=== PATIENT | male | born 1950 | race Hispanic/Latino ===

== ENCOUNTER 2025-02-10 09:23 | Inpatient (IN) | payer MEDICARE ==
[2025-02-10] VITALS (7 sets, daily range): BP systolic 129–141; BP diastolic 73–79; PULSE 62–83; RESP 18–19; TEMP 97.6–98.5; O2SAT 98–100
[~2025-02-10] VITALS: Ht 175.3 cm; Wt 83.9 kg
[2025-02-10] MEDS: HYDROCODONE/APAP 5MG-325MG TAB PO ONE (10:18)
[2025-02-10] MEDS: TETANUS/DIPHTHERIA TOX ADULT 0.5 ML SYR IM ONE (10:20)
[2025-02-10] MEDS ORDERED: SODIUM CHLORIDE FLUSH 10 ML SYR INJ PRN (11:45)
[2025-02-10] MEDS ORDERED: ONDANSETRON HCL INJ 2MG/ML 2ML 2 MG/ML VIAL IV PRN (11:45)
[2025-02-10 12:05] LABS: EST GLOMERULAR FILTRATION RATE 81.0 ML/MIN (>=60)
[2025-02-10 12:08] LABS: INR 1.16
[2025-02-10 12:17] LABS: BASOPHILS % 0.2 % (0.0-1.0); EOSINOPHILS % 0.7 % (0.0-6.0); LYMPHOCYTES % 19.8 % (18.0-39.1); MONOCYTES % 11.7 % (4.4-11.3); NEUTROPHILS % 67.2 % (38.7-80.0); RED CELL DISTRIBUTION WIDTH 14.4 % (11.7-14.4)
[2025-02-10] MEDS ORDERED: ASPIRIN81 MG PO (15:30)
[2025-02-10] MEDS ORDERED: LOSARTAN POTASS25 MG PO (15:30)
[2025-02-10] MEDS ORDERED: CRESTOR40 MG PO (15:30)
[2025-02-10] MEDS ORDERED: VITAMIN K100 MCG PO (15:32)
[2025-02-11] VITALS (8 sets, daily range): BP systolic 125–129; BP diastolic 69–73; PULSE 62–77; RESP 17–19; TEMP 98.1–98.6; O2SAT 97–100
[2025-02-11 06:06] LABS: BASOPHILS % 0.2 % (0.0-1.0); EOSINOPHILS % 1.6 % (0.0-6.0); LYMPHOCYTES % 21.9 % (18.0-39.1); MONOCYTES % 12.8 % (4.4-11.3); NEUTROPHILS % 63.3 % (38.7-80.0); RED CELL DISTRIBUTION WIDTH 13.7 % (11.7-14.4)
[2025-02-11 06:33] LABS: EST GLOMERULAR FILTRATION RATE 82.0 ML/MIN (>=60)
[2025-02-11] MEDS: LOSARTAN POTASSIUM 25 MG TAB PO SCH (09:37)
[2025-02-11] MEDS: BISACODYL 5 MG TAB EC PO PRN (20:17)
[2025-02-11] MEDS ORDERED: BISACODYL 5 MG TAB EC PO PRN (22:30)
[2025-02-11] MEDS ORDERED: DOCUSATE SODIUM 100 MG CAP PO PRN (22:30)
[2025-02-11] MEDS ORDERED: ACETAMINOPHEN 325 MG TAB PO PRN (22:30)
[2025-02-12] VITALS (9 sets, daily range): BP systolic 101–129; BP diastolic 63–76; PULSE 58–78; RESP 18–19; TEMP 97.2–98.1; O2SAT 96–100
[2025-02-12] MEDS: Morphine 2mg Syringe 2 MG/ML SYR IV PRN (00:30)
[2025-02-13] VITALS: BP 114/72; PULSE 56; RESP 18; TEMP 98.2; O2SAT 100
[2025-02-13 04:00] VITALS: BP 103/59; PULSE 56; RESP 18; TEMP 97.5; O2SAT 100
[2025-02-13 06:25] VITALS: PULSE 82; RESP 22; O2SAT 95
[2025-02-13 08:00] VITALS: BP 116/73; PULSE 65; RESP 18; TEMP 97.8; O2SAT 100
[2025-02-13 08:30] VITALS: BP 116/73; PULSE 65; RESP 18; TEMP 97.8; O2SAT 100
[2025-02-13 12:00] VITALS: BP 122/73; PULSE 62; RESP 20; TEMP 98.1; O2SAT 100
== END 2025-02-13 19:00 | disposition home or self-care (01) | DRG 200 ==
LOC: ER 09:28 → ERHOLD 11:43 → MED/SURG3 13:59
PROVIDERS: ADMIT Internal Medicine; ATTEND Internal Medicine
PROC: 0W9B30Z Drainage of Left Pleural Cavity with Drainage Device, Percutaneous Approach (ICD-10-PCS; principal; 2025-02-10)
DX: S27.0XXA Traumatic pneumothorax, initial encounter (principal); I69.354 Hemiplegia and hemiparesis following cerebral infarction affecting left non-dominant side; S22.32XA Fracture of one rib, left side, initial encounter for closed fracture; S80.212A Abrasion, left knee, initial encounter; S50.312A Abrasion of left elbow, initial encounter; W01.0XXA Fall on same level from slipping, tripping and stumbling without subsequent striking against object, initial encounter; Y92.009 Unspecified place in unspecified non-institutional (private) residence as the place of occurrence of the external cause; I10 Essential (primary) hypertension; E78.00 Pure hypercholesterolemia, unspecified; R73.03 Prediabetes; Z71.81 Spiritual or religious counseling
CPT/HCPCS: 32557; 36415; 71045; 71250; 74470; 80053; 83735; 85025; 85610; 85730; 90714; 94799; 96372; 99284; C1729; J2270

== ENCOUNTER → 2025-02-26 | Outpatient (REF) | payer MEDICARE, OTHER ==
[~2025-02-26] MED LIST: ASPIRIN81 MG PO; CRESTOR40 MG PO; LOSARTAN POTASS25 MG PO; VITAMIN K100 MCG PO
== END ==
LOC: RAD 11:24
PROVIDERS: ATTEND Internal Medicine Critical Care Medicine
DX: Z09 Encounter for follow-up examination after completed treatment for conditions other than malignant neoplasm (principal); J93.9 Pneumothorax, unspecified
CPT/HCPCS: 71046